=== PATIENT | female | born 1965 | race Caucasian/White ===

== ENCOUNTER 2022-05-26 08:00 | Outpatient (CLI) | payer OTHER | END 2022-05-26 18:00 | disposition home or self-care (01) | LOC: SLB 08:00 → EDSTATUS 05-29 11:30 | PROVIDERS: ATTEND Obstetrics & Gynecology | DX: Z01.818 Encounter for other preprocedural examination (principal); N84.0 Polyp of corpus uteri; N95.0 Postmenopausal bleeding | CPT/HCPCS: 87081 ==

== ENCOUNTER 2022-11-13 09:53 | Day surgery (SDC) | payer OTHER ==
[~2022-11-13] VITALS: Ht 152.4 cm; Wt 63.5 kg
[2022-11-13 10:06] LABS: HCG,QUAL RESULT NEGATIVE (NEGATIVE)
[2022-11-13] MEDS ORDERED: PROPOFOL 200MG/ 20ML VIAL (DIPRIVAN) IV ONE (11:47)
[2022-11-13] MEDS ORDERED: LR 1,000 ML IV.SOLN IV ONE (11:47)
[2022-11-13] MEDS ORDERED: SEVOFLURANE 15 MIN GAS INH ONE (11:47)
[2022-11-13] MEDS ORDERED: NS IRRIG SOLN 1000 ML IR ONE ×2 (11:47)
[2022-11-13 11:57] VITALS: O2SAT 99
[2022-11-13] MEDS ORDERED: MIDAZOLAM HCL 5 MG/5 ML VIAL IVP PRN (12:30)
[2022-11-13] MEDS ORDERED: KETOROLAC TROMETHAMINE 30 MG VIAL IVP PRN (12:30)
[2022-11-13] MEDS ORDERED: ONDANSETRON HCL 4 MG/2 ML VIAL IVP PRN (12:30)
[2022-11-13] MEDS ORDERED: HYDROmorphone 1 MG/ML INJ. CARTRIDGE IVP PRN (12:30)
[2022-11-13] MEDS ORDERED: IBUPROFEN 600 MG TABLET PO ONE (12:30)
[2022-11-13 14:01] VITALS: PULSE 66; RESP 17
[2022-11-13 14:52] VITALS: BP_SYST 158
== END 2022-11-13 14:07 | disposition home or self-care (01) ==
LOC: SMU 09:53 → SDS 09:53
PROVIDERS: ATTEND Obstetrics & Gynecology
DX: N95.0 Postmenopausal bleeding (principal); N84.0 Polyp of corpus uteri; Z79.899 Other long term (current) drug therapy
CPT/HCPCS: 87081; 58558; 84703; 88305; J2704; J7120